=== PATIENT | male | born 1955 | race Caucasian/White ===

== ENCOUNTER 2019-09-16 06:15 | Inpatient (IN) | payer OTHER ==
[2019-09-09 14:28] VITALS: BMI 35.9
[2019-09-16] MEDS ORDERED: BENZOIN/ALOE VERA/STORAX/TOLU 58 ML BOTTLE ONE (07:13)
[2019-09-16] MEDS ORDERED: HEPARIN NA (PORCINE) 5,000 UNITS/ML 1ML VIAL ONE (07:13)
[2019-09-16] MEDS ORDERED: THROMBIN (BOVINE) 5,000 UNIT VIAL TP ONE ×2 (07:14→09:45)
[2019-09-16] MEDS ORDERED: fentaNYL CITRATE 250 MCG/5 ML VIAL ONE (07:34)
[2019-09-16] MEDS ORDERED: ROCURONIUM BROMIDE 50 MG/5 ML SYRINGE ONE (07:35)
[2019-09-16] MEDS ORDERED: MIDAZOLAM HCL 2 MG/2 ML SINGLE DOSE VIAL ONE ×4 (07:35→08:08)
[2019-09-16] MEDS ORDERED: PROPOFOL 20 ML ONE ×19 (07:35→12:16)
[2019-09-16] MEDS ORDERED: SUCCINYLCHOLINE CHLORIDE 200 MG/10 ML SYRINGE ONE (07:35)
--- NOTE | 2019-09-16 07:46 | PN ---
Progress Note (short form) - Note Progress Note: 64M s/p C5 corpectomies with C4-C5, C5-C6 discectomies and C4-C6 anterior cervical decompression with anterior column reconstruction and instrumented fusion POD #0. -12cc decadron x 1 administered. -Airway observation: In case of emergency, remove anterior cervical spine dressing and pull out running suture; ok to cut suture if needed to decompress hematoma. -Maintain head of bed 30-45 degrees. -Pain medication: oral meds (tramadol preferred; no oxycodone/percocet/vicodin) , no CONTRACTS [place]; NO NSAID's. -Hard c-collar. -DVT PPx: -Mechanical only: JOVANY's, SCD's. -Post-op Ancef x 3 doses. -f/u AM labs. -Incentive spirometry. -PT/OT/Rehab, OOB. -PWB B/L UE: 5lbs. -WBAT B/L LE. -d/c Gutierrez catheter at midnight tonight; TOV (8 hours max). -Keep dressing clean & dry. -No heavy lifting (>5 lbs), bending or twisting x 6 months post op. -Start with soft diet; advance diet as tolerated. -B/L UE & LE NV checks. -Care per ICU & medical hospitalist teams. -Discharge planning: f/u [facility] office 09/26/2019; call for appointment; . Abilio Briscoe MD (Orthopaedic Surgery).
[2019-09-16] MEDS ORDERED: BUPIVACAINE HCL/PF 0.5% (5 MG/ML) 30 ML VIAL IJ ONE (08:05)
[2019-09-16] MEDS ORDERED: DEXAMETHASONE SOD PHOSPHATE 4 MG/1 ML VIAL ONE (08:05)
[2019-09-16] MEDS ORDERED: VANCOMYCIN 1,000 MG VIAL (RESTRICTED TO ID ONLY) IVPB ONE ×2 (08:40→09:10)
[2019-09-16] MEDS ORDERED: ceFAZolin SODIUM 1 GM VIAL IVPB ONE ×2 (09:00→09:10)
--- NOTE | 2019-09-16 09:10 | OP ---
Operative Note - Note: Operative Date: 09/16/19 Pre-Operative Diagnosis: 1. 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 2. C4-C6 spinal stenosis with myelopathy. 3. 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 SEVERITY OF ILLNESS: 4. Operation: 1. C4-C5, C5-C6 discectomies. 2. C5 corpectomy. 3. C4, C6 partial corpectomies. 4. Insertion biomechanical device C4-C6. 5. C4-C6 Anterior instrumentation. 6. C4-C6 Anterior arthrodesis. 7. Bone Autograft. 8. Bone allograft. 9. Microsurgical dissection Findings: Severe spinal stenosis C4-C5, C5-C6 Anterior spondylophytes C4-C5, C5-C6 Spinal cord bulging into field after decompression Distinctive intra-operative neural monitoring improvement Implants: C4-C6 Choice Spine [place] Cage: 30 x [id number]. Precision Spine Slimplicity Plate: 35mm. Screws: 4 x 4x12mm Post-Operative Diagnosis: Same as Pre-op Surgeon: Abilio Briscoe Industrial Relations Representative: Vince Briscoe Anesthesiologist/STEAMING MACHINE OPERATOR: Lisa Ge Anesthesia: General, Local Specimens Removed: C4-C5, C5-C6 discs Estimated Blood Loss (mls): 100 Fluid Volume Replaced (mls): 1,500 (Crystalloid) Operative Report Dictated: Yes
[2019-09-16] MEDS ORDERED: NEOSTIGMINE METHYLSULFATE 0.5 MG/1 ML - 10 ML MDV ONE (09:12)
[2019-09-16] MEDS ORDERED: PHENYLEPHRINE HCL 10 MG/1 ML SINGLE DOSE VIAL ONE (09:26)
[2019-09-16] MEDS ORDERED: ONDANSETRON 4 MG/2 ML VIAL IVPUSH PRN (13:23)
[2019-09-16] MEDS ORDERED: traMADol HCL 50 MG TABLET PO PRN (13:27)
[2019-09-16] MEDS ORDERED: ACETAMINOPHEN 1000 MG/100 ML VIAL (NON FORMULARY) IVPB ONE ×2 (14:45→16:35)
[2019-09-16] MEDS ORDERED: ACETAMINOPHEN INJECTION 100 ML IVPB ONE (14:46)
[2019-09-16] MEDS ORDERED: oxyCODONE HCL 5 MG TABLET PO PRN ×2 (14:56)
[2019-09-16] MEDS ORDERED: DOCUSATE SODIUM 100 MG CAPSULE (FP) PO PRN (14:56)
--- NOTE | 2019-09-16 16:31 | CONSULT ---
Consultation: REQUESTING PROVIDER: Dr Briscoe CONSULT REQUEST: ICU management HISTORY OF PRESENT ILLNESS: 64 yo male with PMH of borderline HTN and HLD presented to the ED with complaints of left sided numbness and pain - this is patients first neck surgery - he states that he has been suffering for years with this pain and has avoided surgery; he had received 1 steroid injection in the past the pain in addition to the numbness got so severe which is why he came in for surgery - patient is now s/p C5 corpectomies with C4-C5, C5-C6 discectomies and C4-C6 anterior cervical decompression with anterior column reconstruction and instrumented fusion. EBL was 100ml with 1500 cystalloid replaced ; received decadron x1 . REVIEW OF SYSTEMS: CONSTITUTIONAL: Absent: fever, chills, diaphoresis, generalized weakness, malaise, loss of appetite, weight change HEENT: Absent: rhinorrhea, nasal congestion, throat pain, throat swelling, difficulty swallowing, mouth swelling, ear pain, eye pain, visual changes CARDIOVASCULAR: Absent: chest pain, syncope, palpitations, irregular heart rate, lightheadedness , peripheral edema RESPIRATORY: Absent: cough, shortness of breath, dyspnea with exertion, orthopnea, wheezing, stridor, hemoptysis GASTROINTESTINAL: Absent: abdominal pain, abdominal distension, nausea, vomiting, diarrhea, constipation, melena, hematochezia GENITOURINARY: Absent: dysuria, frequency, urgency, hesitancy, hematuria, flank pain, genital pain MUSCULOSKELETAL: Present: neck/back pain Absent: myalgia, arthralgia, joint swelling, SKIN: Absent: rash, itching, pallor HEMATOLOGIC/IMMUNOLOGIC: Absent: easy bleeding, easy bruising, lymphadenopathy, frequent infections ENDOCRINE: Absent: unexplained weight gain, unexplained weight loss, heat intolerance, cold intolerance NEUROLOGIC: Present paresthesias, Absent: headache, focal weakness or, dizziness, unsteady gait, seizure, mental status changes, bladder or bowel incontinence PSYCHIATRIC: Absent: anxiety, depression, suicidal or homicidal ideation, hallucinations. PHYSICAL EXAMINATION Vital Signs - 24 hr 09/16/19 09/16/19 09/16/19 07:14 13:40 13:45 Temperature 98.0 F 98.8 F Pulse Rate 75 70 98 H Respiratory 20 18 18 Rate Blood Pressure 151/80 139/74 133/79 O2 Sat by Pulse 98 99 99 Oximetry (%) 09/16/19 09/16/19 09/16/19 13:50 14:00 14:15 Temperature Pulse Rate 93 H 93 H 94 H Respiratory 18 20 20 Rate Blood Pressure 134/84 141/86 152/91 O2 Sat by Pulse 99 99 99 Oximetry (%) 09/16/19 09/16/19 09/16/19 14:30 14:45 15:00 Temperature Pulse Rate 90 92 H 93 H Respiratory 20 20 21 H Rate Blood Pressure 150/91 151/92 155/90 O2 Sat by Pulse 99 99 98 Oximetry (%) 09/16/19 09/16/19 09/16/19 15:10 15:15 15:30 Temperature Pulse Rate 90 94 H 93 H Respiratory 16 17 17 Rate Blood Pressure 152/95 150/91 144/92 O2 Sat by Pulse 98 99 99 Oximetry (%) 09/16/19 15:45 Temperature Pulse Rate 90 Respiratory 18 Rate Blood Pressure 139/90 O2 Sat by Pulse 98 Oximetry (%) GENERAL: Awake, alert, and fully oriented, in no acute distress.. EYES: PEERLA; EOMI; no scleral icterus NECK:C collar in place; anterior dressing c/d/i LUNGS: CTA B/L; no rales; rhonchi or wheezing HEART: Regular rate and rhythm, normal S1 and S2 without murmur, rub or gallop. ABDOMEN: Soft, nontender, not distended, normoactive bowel sounds, no guarding, no rebound, no masses. No hepatomegaly or splenomegaly. MUSCULOSKELETAL: Normal range of motion at all joints. No bony deformities or tenderness. No CVA tenderness. EXTREMITIES: SCDS in place- warm; well-perfused no clubbing/cyanosis or edema NEUROLOGICAL: Cranial nerves II-XII intact. Normal speech. Normal gait. RUE and LUE: 5/5 strength B/L sensation intact throughout; RLE and LLE 5/5 strength BL ; sensation intact throughout 2+ pulses; normoreflexive PSYCHIATRIC: Cooperative. Good eye contact. Appropriate mood and affect. SKIN: Warm, dry, normal turgor, no rashes or lesions noted. Laboratory Results - last 24 hr 09/16/19 09/16/19 06:33 08:45 Blood Type O POSITIVE O POSITIVE Antibody Screen Negative Active Medications Generic Name Dose Route Start Last Admin Trade Name Freq PRN Reason Stop Dose Admin Acetaminophen 1,000 mg 09/16/19 18:00 Tylenol - PO Q6HPO [facility] Atorvastatin Calcium 10 mg 09/16/19 22:00 Lipitor - PO HS [facility] Cefazolin Sodium/Dextrose 2 gm 09/16/19 18:30 Ancef 2 Gm Premixed Ivpb - IVPB 09/17/19 06:31 Q6H [facility] Dexamethasone Sodium Phosphate 10 mg 09/17/19 06:30 Decadron Injection - IVPUSH 09/17/19 06:31 ONCE ONE Diazepam 5 mg 09/16/19 22:00 Valium - PO BID [facility] Docusate Sodium 100 mg 09/16/19 14:56 Colace - PO BID PRN CONSTIPATION Fentanyl 50 mcg 09/16/19 14:52 Sublimaze Injection - IVPUSH [id number] PRN PAIN-PACU ORDER X 4 DOSES ONLY Hydromorphone HCl 1 mg 09/16/19 14:58 Dilaudid Vial - IVPB Q4H PRN PAIN LEVEL 7 - 10 Lactated Ringer's 1,000 mls @ 125 mls/hr 09/16/19 13:30 Lactated Ringers Solution IV ASDIR [facility] Lisinopril 10 mg 09/17/19 10:00 Prinivil PO DAILY [facility] Loratadine 10 mg 09/17/19 10:00 Claritin - PO DAILY [facility] Montelukast Sodium 10 mg 09/16/19 22:00 Singulair - PO HS [facility] Ondansetron HCl 4 mg 09/16/19 13:23 Zofran Injection IVPUSH Q6H PRN NAUSEA AND/OR VOMITING Oxycodone HCl 5 mg 09/16/19 14:56 Roxicodone - PO Q3H PRN PAIN LEVEL 1 - 3 Oxycodone HCl 10 mg 09/16/19 14:56 Roxicodone - PO Q3H PRN PAIN LEVEL 4 - 6 Fluticasone/Salmeterol 1 puff 09/16/19 22:00 Advair 100mcg/50mcg - IH BID [facility] Tamsulosin HCl 0.4 mg 09/17/19 08:30 Flomax - PO DAILY@0830 [facility] Tramadol HCl 50 mg 09/16/19 13:27 Ultram - PO Q4H PRN PAIN LEVEL 6-10 ASSESSMENT/PLAN: 64 yo male with PMH of borderline HTN and HLD presented to the ED with complaints of left sided numbness and pain who is now POD #0 s/p C5 corpectomies with C4-C5, C5-C6 discectomies and C4-C6 anterior cervical decompression with anterior column reconstruction and instrumented fusion. #Neuro patient is POD # 0 s/p C5 corpectomies with C4-C5, C5-C6 discectomies and C4- C6 anterior cervical decompression with anterior column reconstruction and instrumented fusion. -bustos has been removed -tramadol PRN for pain -c-collar in place -SCDS for dvt PPX -OOB to chair -patient has not passed flatus yet -f/u neuro surg recs -PT #Cardio history of borderline HTN and HLD -c/w lisinopril and lipitor -monitor hemodynamics #GI stable; no issues -soft diet #Pulm stable;no issues F/E/N will d/c fluids once tolerating diet monitor electrolytes soft diet dvt ppx: scds Dispo: We will continue to follow the patient. Thank you for this consultative opportunity. Problem List - Problems (1) HTN (hypertension) Code(s): I10 - ESSENTIAL (PRIMARY) HYPERTENSION (2) HLD (hyperlipidemia) Code(s): E78.5 - HYPERLIPIDEMIA, UNSPECIFIED (3) Cervical disc disease Code(s): M50.90 - CERVICAL DISC DISORDER, UNSP, UNSPECIFIED CERVICAL REGION Visit type - Emergency Visit Emergency Visit: Yes ED Registration Date: 09/16/19 Care time: The patient presented to the Emergency Department on the above date and was hospitalized for further evaluation of their emergent condition. - New Patient This patient is new to me today: Yes Date on this admission: 09/16/19 - Critical Care Critical Care patient: Yes Total Critical Care Time (in minutes): 35 Critical Care Statement: The care of this patient involved high complexity decision making to prevent further life threatening deterioration of the patient 's condition and/or to evaluate & treat vital organ system(s) failure or risk of failure. ATTENDING PHYSICIAN STATEMENT I saw and evaluated the patient. I reviewed the resident's note and discussed the case with the resident. I agree with the resident's findings and plan as documented. SUBJECTIVE: OBJECTIVE: ASSESSMENT AND PLAN:
[2019-09-16] MEDS: HYDROmorphone HCl 2 MG/ML VIAL IVPB PRN ×2 (17:22→20:54)
[2019-09-16] MEDS ORDERED: ACETAMINOPHEN 500 MG TABLET (FP) PO SCH (18:00)
[2019-09-16] MEDS: ceFAZolin 2 GRAM PREMIX BAG IVPB SCH ×2 (18:16→23:42)
[2019-09-16] MEDS: LACTATED RINGERS SOLUTION 1,000 ML IV SCH (19:00)
[2019-09-16] MEDS: diazePAM 5 MG TABLET PO SCH (21:08)
[2019-09-16] MEDS ORDERED: MONTELUKAST NA 10 MG TABLET PO SCH (22:00)
[2019-09-16] MEDS ORDERED: ATORVASTATIN CA 10 MG TABLET (FP) PO SCH (22:00)
[2019-09-16] MEDS: FLUTICASONE/SALMETEROL 100 MCG/50 MCG DISKUS IH SCH (22:51)
[2019-09-17] MEDS: HYDROmorphone HCl 2 MG/ML VIAL IVPB PRN (02:16)
[2019-09-17] MEDS: LACTATED RINGERS SOLUTION 1,000 ML IV SCH (04:35)
[2019-09-17] MEDS: ceFAZolin 2 GRAM PREMIX BAG IVPB SCH (05:39)
[2019-09-17] MEDS ORDERED: BENZOCAINE/MENTH/CETYLPYRD CL 1 EACH LOZENGE MM PRN ×2 (06:13→20:26)
[2019-09-17] MEDS ORDERED: DEXAMETHASONE SOD PHOSPHATE 10 MG/1 ML VIAL IVPUSH ONE (06:30)
--- NOTE | 2019-09-17 07:42 | HP ---
CHIEF COMPLAINT: Neck, left shoulder pain PCP: HISTORY OF PRESENT ILLNESS: Patient is a 64 year old male with history of hypertension, hyperlipidemia, benign prostatic hyperplasia, asthma, presented with compliant of neck, left shoulder pain with associated paresthesia. Patient states symptoms began several years ago leading to difficulty moving his left arm, and grasping objects. He had attempted steroid injection to the shoulder which were not palliative. Patient recently had MRI of cervical spine which revealed multilevel disc degeneration. Patient is POD #1 s/p C4-C5, C5-C6 discectomies with C5 corpectomy and C4, C6 partial corpectomies. Patient received insertion of biomechanical device C4-C6. C4-C6 Anterior instrumentation. C4-C6 Anterior arthrodesis. Currently endorses improvement of the left upper extremity range of motion. 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 Indepenent in activities of daily living. Smoking: Denies smoking cigarettes Alcohol: Admits 2-3 drinks of whiskey on weekend. Drugs: Denies illicit drug use. Allergies sesame seed Allergy (Severe, Verified 09/09/19 14:29) Swelling,PASSES OUT HOME MEDICATIONS: Home Medications Medication Instructions Recorded Benazepril HCl 10 mg PO DAILY 09/09/19 Levocetirizine Dihydrochloride 5 mg PO PRN 09/09/19 [Allergy Relief] Montelukast Sodium [Singulair] 10 mg PO HS 09/09/19 Salmeterol/Fluticasone [Advair 1 inh PO BID 09/09/19 100Mcg/50Mcg -] Simvastatin 20 mg PO HS 09/09/19 Tamsulosin HCl 0.4 mg PO DAILY 09/09/19 REVIEW OF SYSTEMS CONSTITUTIONAL: Absent: fever, chills, diaphoresis, generalized weakness, malaise, loss of appetite, weight change HEENT: Absent: rhinorrhea, nasal congestion, throat pain, throat swelling, difficulty swallowing, mouth swelling, ear pain, eye pain, visual changes CARDIOVASCULAR: Absent: chest pain, syncope, palpitations, irregular heart rate, lightheadedness , peripheral edema RESPIRATORY: Absent: cough, shortness of breath, dyspnea with exertion, orthopnea, wheezing, stridor, hemoptysis GASTROINTESTINAL: Absent: abdominal pain, abdominal distension, nausea, vomiting, diarrhea, constipation, melena, hematochezia GENITOURINARY: Absent: dysuria, frequency, urgency, hesitancy, hematuria, flank pain, genital pain MUSCULOSKELETAL: Absent: myalgia, arthralgia, joint swelling, back pain, neck pain SKIN: Absent: rash, itching, pallor HEMATOLOGIC/IMMUNOLOGIC: Absent: easy bleeding, easy bruising, lymphadenopathy, frequent infections ENDOCRINE: Absent: unexplained weight gain, unexplained weight loss, heat intolerance, cold intolerance NEUROLOGIC: Absent: headache, focal weakness or paresthesias, dizziness, unsteady gait, seizure, mental status changes, bladder or bowel incontinence PSYCHIATRIC: Absent: anxiety, depression, suicidal or homicidal ideation, hallucinations. PHYSICAL EXAMINATION Vital Signs - 24 hr 09/16/19 09/16/19 09/16/19 13:40 13:45 13:50 Temperature 98.8 F Pulse Rate 70 98 H 93 H Respiratory 18 18 18 Rate Blood Pressure 139/74 133/79 134/84 O2 Sat by Pulse 99 99 99 Oximetry (%) 09/16/19 09/16/19 09/16/19 14:00 14:15 14:30 Temperature Pulse Rate 93 H 94 H 90 Respiratory 20 20 20 Rate Blood Pressure 141/86 152/91 150/91 O2 Sat by Pulse 99 99 99 Oximetry (%) 09/16/19 09/16/19 09/16/19 14:45 15:00 15:10 Temperature Pulse Rate 92 H 93 H 90 Respiratory 20 21 H 16 Rate Blood Pressure 151/92 155/90 152/95 O2 Sat by Pulse 99 98 98 Oximetry (%) 09/16/19 09/16/19 09/16/19 15:15 15:30 15:45 Temperature Pulse Rate 94 H 93 H 90 Respiratory 17 17 18 Rate Blood Pressure 150/91 144/92 139/90 O2 Sat by Pulse 99 99 98 Oximetry (%) 09/16/19 09/16/19 09/16/19 16:00 16:38 16:41 Temperature 98.9 F 97.8 F Pulse Rate 96 H 92 H 88 Respiratory 20 18 18 Rate Blood Pressure 138/85 138/93 145/90 O2 Sat by Pulse 99 Oximetry (%) 09/16/19 09/16/19 09/16/19 17:29 18:00 20:00 Temperature 98.1 F 98.1 F Pulse Rate 64 90 93 H Respiratory 15 16 22 H Rate Blood Pressure 142/87 122/79 142/90 O2 Sat by Pulse Oximetry (%) 09/16/19 09/17/19 09/17/19 22:00 00:00 02:00 Temperature 98.5 F 98.4 F Pulse Rate 67 65 52 L Respiratory 18 11 14 Rate Blood Pressure 132/74 126/77 150/79 O2 Sat by Pulse 99 Oximetry (%) 09/17/19 09/17/19 04:00 06:00 Temperature 98.5 F Pulse Rate 59 L 55 L Respiratory 14 12 Rate Blood Pressure 123/97 145/82 O2 Sat by Pulse Oximetry (%) GENERAL: Awake, alert, and fully oriented, in no acute distress. HEAD: Normal with no signs of trauma. EYES: Pupils equal, round and reactive to light, extraocular movements intact, sclera anicteric, conjunctiva clear. EARS, NOSE, THROAT: Oropharynx clear without exudates. Moist mucous membranes. NECK: Cervical collar in place. Supple without lymphadenopathy. Negative stridor auscultated. LUNGS: Breath sounds equal, clear to auscultation bilaterally. No wheezes, and no crackles. No accessory muscle use. HEART: Regular rate and rhythm, normal S1 and S2 without murmur, rub or gallop. ABDOMEN: Soft, nontender, not distended, normoactive bowel sounds, no guarding, no rebound, no masses. No hepatomegaly or splenomegaly. MUSCULOSKELETAL: Normal range of motion at all joints. No bony deformities or tenderness. No CVA tenderness. UPPER EXTREMITIES: 2+ radial pulses, warm, well-perfused. LOWER EXTREMITIES: 2+ dorsalis pedis pulses, warm, well-perfused. No calf tenderness. No peripheral edema bilaterally. NEUROLOGICAL: Cranial nerves II-XII intact. Normal speech. Strength 5/5 bilateral upper and lower extremities. PSYCHIATRIC: Cooperative. Appropriate mood and affect upon my encounter. SKIN: Warm, dry. Anterior cervical surgical bandaged site clean, dry, nondraining. Laboratory Results - last 24 hr 09/16/19 09/16/19 06:33 08:45 Blood Type O POSITIVE O POSITIVE Antibody Screen Negative ASSESSMENT/PLAN: Patient is a 64 year old male with history of hypertension, hyperlipidemia, benign prostatic hyperplasia, asthma, admitted POD #1 s/p C4-C5, C5-C6 discectomies with C5 corpectomy, C4, C6 partial corpectomies, and C4-C6 Anterior instrumentation with anterior arthrodesis. Cervical intervertebral disc disorder -Patient is POD #1 s/p C4-C5, C5-C6 discectomies with C5 corpectomy, C4, C6 partial corpectomies, and C4-C6 Anterior instrumentation with anterior arthrodesis. -Pain control with Ofirmev. Avoid NSAIDs per Dr. Briscoe -Physical therapy evaluation -Incentive spirometer Hypertension -Continue home Lisinopril Hyperlipidemia -Continue home Lipitor Asthma -Currently not in exacerbation. -DuoNebs Q6 hours PRN -Continue home Advair, Singulair Benign prostatic hyperplasia -Continue home Tamsulosin FEN -No IV fluids indicated -Follow BMP, replete as necessary -Soft diet, advance as tolerated Prophylaxis -SCDs bilateral lower extremities. No chemical anticoagulation per Dr. Briscoe Disposition -Continue care in ICU Visit type - Emergency Visit Emergency Visit: Yes ED Registration Date: 09/16/19 Care time: The patient presented to the Emergency Department on the above date and was hospitalized for further evaluation of their emergent condition. - New Patient This patient is new to me today: Yes Date on this admission: 09/16/19 - Critical Care Critical Care patient: Yes Total Critical Care Time (in minutes): 35 Critical Care Statement: The care of this patient involved high complexity decision making to prevent further life threatening deterioration of the patient 's condition and/or to evaluate & treat vital organ system(s) failure or risk of failure. ATTENDING PHYSICIAN STATEMENT I saw and evaluated the patient. I reviewed the resident's note and discussed the case with the resident. I agree with the resident's findings and plan as documented. SUBJECTIVE: OBJECTIVE: ASSESSMENT AND PLAN:
[2019-09-17] MEDS ORDERED: TAMSULOSIN HCL 0.4 MG CAP PO SCH (08:30)
--- NOTE | 2019-09-17 08:51 | OP ---
DATE OF OPERATION: 09/16/2019 PRE-OPERATIVE DIAGNOSIS: 1. 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 Myelopathy. B. Radiculopathy. 2. Severe C4-C6 spinal stenosis with neurogenic claudication. 3. Cervical kyphosis/deformity. 4. Axial segmental instability cervical spine. 5. Progressive neurological decline. POST-OPERATIVE DIAGNOSIS: 1. 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 Myelopathy. B. Radiculopathy. 2. Severe C4-C6 spinal stenosis with neurogenic claudication. 3. Cervical kyphosis/deformity. 4. Axial segmental instability cervical spine. 5. Progressive neurological decline. SURGICAL PROCEDURE: 1. C4-C5, C5-C6 discectomies and arthrodesis (31799, 72281). 2. C5 corpectomy (08555). 3. C4, C6 partial corpectomies (30211 x 2). 4. Insertion of biomechanical device C4-C6 (55356). 5. C4-C6 anterior instrumentation (16445). 6. Bone autograft (54016). 7. Bone allograft (24262). 8. Microsurgical dissection (94371). FINDINGS: Thickened, fibrotic posterior longitudinal ligament (PLL). IMPLANTS: 1. Cage: Choice Spine Frankfort [id number]. 2. Plate: Precision Spine Simplicity 35mm. 3. Screws: 4 x 12x4mm. SURGEON: Abilio Briscoe MD JAVA SUPPORT ENGINEER: Vince Briscoe MD ANESTHESIOLOGIST: Lisa Ge MD ANESTHESIA: General endotracheal tube anesthesia. POSITION: Supine. INCISION: Right oblique anterior. ESTIMATED BLOOD LOSS: 100cc. TRANSFUSIONS: None. INTRAVENOUS FLUID: 1.5L crystalloid. SPECIMENS: C4-C5, C5-C6 discs. DRAINS: None. COMPLICATIONS: None. URINE OUTPUT: See anesthesia record. BACTERIOLOGY: None. CLOSURE: 2-0 Vicryl and 3-0 Biosyn absorbable suture. INDICATIONS: The patient was indicated for an anterior cervical decompression and instrumented fusion to prevent the progression of already worsening neurological decline. In addition to decompressing Mr. Arroyo's C4-C5 and C5-C6 intervertebral disc spaces, we indicated him for a C5 corpectomy to decompress the stenosing soft tissue immediately posterior to the C5 vertebral body. This tissue behind the C5 vertebra was impinging on his spinal cord, and would not have been decompressed by only decompressing the C4-C5 and C5-C6 intervertebral disc spaces. Our decision was almost immediately validated by significant improvement in intra-operative neural monitoring readings in his extremities following our decompression. The patient was identified in the holding area by his armband. A long discussion was held with the patient regarding the risks, benefits and alternatives of the above-named procedure. The risks include, but are not limited to: pain, bleeding, infection, damage to surrounding structures (including nerves, blood vessels, skin, ligaments, tendons, and bone), dysphagia, dysphonia, nerve palsy, weakness, limp, wound complications, pseudarthrosis, failure of fusion, failure of hardware/implants/ reduction, need for further surgery, blood clots, myocardial infarction, pulmonary embolism, cerebrovascular event, anesthesia complications, neurological injury, loss of function, and . Benefits as mentioned above. Alternatives include no surgery. All questions were answered. The patient understood and agreed to the procedure. Informed consent was obtained, witnessed and verified by hospital nursing staff. The patients anterior neck was marked. The patient was then seen by the anesthesia and nursing staff and then taken to the operating room. PROCEDURE: The patient was brought into the operating room and transferred to the OR table , and secured with a safety strap. Consent and the operative site were again verified with the patient, the nursing team, the surgical team, and the anesthesiology team. Anesthesia, IV antibiotics, and TXA were then administered without complication. A time out was done, led by me the attending surgeon. An indwelling Gutierrez catheter was successfully inserted by the nursing team. The intra-operative neural monitoring team then set up for the case. Pre-positional baseline SSEP, MEP, & EEG readings were recorded. The patient was positioned in the supine position with arms tucked and placed under gentle traction using tape over her shoulders. All bony prominences were very well padded. A bump was placed beneath the scapulae to facilitate extension of the patients neck. A C-arm fluoroscopy unit was positioned perpendicularly to the table and maintained at the level of the head, except when needed. The intended surgical level was confirmed using fluoroscopy, and a deep neck crease in the lines of Amy at this level was targeted for incision. Intra-operative neural monitoring revealed no change between pre-positional and post-positional readings. The operative site was then prepped and in the standard sterile fashion using betadine prep and scrub, wiped off with alcohol, Duraprep applied, and then free draped. Pre-operative imaging was available for intra-operative evaluation. Time-out was again done, and the case began. A standard, Eden-Brown approach to the cervical spine was utilized. An oblique anterior incision was made on the right side of the patients neck in the lines of Amy in standard fashion. Dissection was carried through the investing layer of fascia and finger palpation was used to create a plane lateral to the strap muscles between the carotid sheath and the viscera. Next, the esophagus and trachea were visualized as was the carotid sheath. Hand-held retractors were used to retract these structures safely out of the way , allowing direct access to the anterior cervical spine. The prevertebral fascia overlying the anterior cervical spine was then split using peanut swabs. An 18-gauge spinal needle was bent and used to localize the indicated surgical level under fluoroscopy. Next, the medial borders of the Longus Coli musculature were gently released over the anterolateral borders of the vertebral bodies and disc spaces using monopolar electrocautery. A self-retaining retractor system was used with the teeth of the blades retracting the belly of the longus coli muscles, and with the retractors themselves safely retracting the carotid sheath laterally and viscera medially. One 12mm [place] pin was then placed into the center of the vertebral bodies of C4 and C6. The [place] pin placement was confirmed via fluorscopy. A [place] pin distractor system was applied with no distraction at this stage. Additionally, the distractor barrels served as superior and inferior soft tissue retractors. The microscope was then introduced. Using monopolar electrocautery, the annulus of the C4-C5 and C5-C6 discs was incised. Each disc was morselized using a curette and excised using a pituitary rongeur. A Matchstick rosi-tipped jimmie was then used to cut a trough onto the left- and right-hand side of the C5 vertebral body just medial to the waist of the vertebral body, and thus medial to the plane of the vertebral arteries. The C4-C5 and C5-C6 disc spaces were then also burred out. The remaining bone was delivered with a Leksell rongeur. All of this bone was saved for grafting purposes as an autologous graft. A 4mm ball-shaped, rosi-tipped jimmie was utilized to complete the debulking of the residual bone. Gentle distraction was applied to the [place] pins. An undercutting partial corpectomies were performed at C4 and C6 using a jimmie and Kerrison rongeurs. This was to ensure complete decompression proximally and distally. A small Terry type elevator was utilized to ensure that all PLL complex was free from adhesion to the theca from C4-C6. There was significant adhesion of the PLL to the ventral dura. There was no evidence of OPLL. The visible posterior longitudinal ligament was released and excised utilizing Kerrison rongeur upcuts. This ensured complete decompression proximally and distally from C4-C6. Our decompression of the cervical spine was successfully achieved. The spinal cord almost appeared to be bulging into our microscopic field of view now that the stenosis had been decompressed. The anesthesiologist then performed a Valsalva maneuver up to 40mmHg. There was no evidence of dural defect, cerebrospinal fluid leak, or uncontrollable bleeding. Next, a Choice Spine Frankfort cage measure to fit the space created. The cage was filled with morselized autologous bone derived from the corpectomies, along with demineralized bone matrix putty allograft. The cage was then gently tapped into position, achieving excellent press-fit. [place] pin distraction was released and the endplates of the C4 and C6 vertebrae collapse onto the teeth of the strut cage. This completing the anterior arthrodesis. The C4 and C6 L[place] pins were removed. The holes from the [place] pins at C4 and C6 were plugged with demineralized bone matrix putty combined with morselized autograft bone. A Precision Spine Slimplicity plate was sized and 4 4x12mm screws were used to provide solid fixation of the plate to the anterior C4 and C6 vertebral bodies. The screws were then locked using the plate-screw locking mechanism. Fluoroscopic images in the AP and lateral plane showed implants to be in good position and with good overall alignment of the cervical spine. Throughout the case, copious irrigation was performed, and hemostasis was assured. No drain was utilized. The wound was closed primarily using 2-0 Vicryl and 3-0 Biosyn sutures. A sterile compressive dressing was applied. Sponge and needle counts were correct at the end of the case, and I, the attending surgeon, was present and scrubbed throughout the case. A hard Jeddo-J cervical collar was secured to protect the patient's neck. The patient was then extubated by the anesthesia staff without incident or complications and was then transferred to the recovery room in stable condition having tolerated the procedure well. OVERALL COMMENTS: Overall the case went very well. Intra-operative neural monitoring readings improved from baseline very shortly after the C4-C6 anterior decompression. MD [place] Molina/[id number] MTDD
--- NOTE | 2019-09-17 09:08 | PN ---
Progress Note (short form) - Note Progress Note: Patient seen. Doing well. POD#1, s/p C4-6ACDF and C5 corpectomy. Taking POs, minnimal discomfort. No recall. No complaints
[2019-09-17] MEDS: ACETAMINOPHEN 1000 MG/100 ML VIAL (NON FORMULARY) IVPB PRN ×2 (09:12→15:13)
[2019-09-17 09:39] LABS: ALBUMIN 3.9 g/dl (3.4-5.0); BILIRUBIN,TOTAL 0.3 mg/dL (0.2-1); BLOOD UREA NITROGEN 17.6 mg/dL (7-18); CALCIUM 9.1 mg/dL (8.5-10.1); CREATININE 0.9 mg/dL (0.55-1.3); MAGNESIUM 2.4 mg/dL (1.8-2.4); PHOSPHOROUS 2.3 mg/dL (2.5-4.9); POTASSIUM 4.3 mmol/L (3.5-5.1); TOT PROT 7.4 g/dl (6.4-8.2)
[2019-09-17] MEDS ORDERED: LORATADINE 10 MG TABLET PO SCH (10:00)
[2019-09-17] MEDS ORDERED: LISINOPRIL 10 MG TABLET (FP) PO SCH (10:00)
[2019-09-17] MEDS ORDERED: NAPH,MB-DB/K PH,MBDB POWDER PACKET PO ONE (10:03)
[2019-09-17] MEDS ORDERED: ALBUTEROL SO4 8 GM HFA INHALER IH PRN (10:21)
--- NOTE | 2019-09-17 10:32 | PN ---
Teaching Attending Note Name of Resident: Erin Mann ATTENDING PHYSICIAN STATEMENT I saw and evaluated the patient. I reviewed the resident's note and discussed the case with the resident. I agree with the resident's findings and plan as documented. SUBJECTIVE: Patient seen and examined in the ICU. Awake and alert. Breathing feels stable. No CP or SOB. Pain 4/10. Intake & Output 09/14/19 09/15/19 09/16/19 09/17/19 23:59 23:59 23:59 23:59 Intake Total 1999 1750 Output Total 2860 450 Balance -860 1300 Last Vital Signs Temp Pulse Resp BP Pulse Ox 98.5 F 55 L 12 145/82 95 09/17/19 06:00 09/17/19 06:00 09/17/19 06:00 09/17/19 06:00 09/17/19 08:00 Active Medications Acetaminophen (Ofirmev Injection -) 1,000 mg IVPB Q6H PRN PRN Reason: PAIN LEVEL 4 - 6 Last Admin: 09/17/19 09:12 Dose: 1,000 mg Albuterol Sulfate (Ventolin Hfa Inhaler -) 2 puff IH Q4H PRN PRN Reason: SHORT OF BREATH/WHEEZING Atorvastatin Calcium (Lipitor -) 10 mg PO HS [facility] Last Admin: 09/16/19 21:08 Dose: 10 mg Benzocaine/Menthol (Cepacol Lozenge -) 1 each MM PRN PRN PRN Reason: SORE THROAT Diazepam (Valium -) 5 mg PO BID [facility] Last Admin: 09/16/19 21:08 Dose: 5 mg Docusate Sodium (Colace -) 100 mg PO BID PRN PRN Reason: CONSTIPATION Lisinopril (Prinivil) 10 mg PO DAILY [facility] Loratadine (Claritin -) 10 mg PO DAILY [facility] Montelukast Sodium (Singulair -) 10 mg PO HS [facility] Last Admin: 09/16/19 21:08 Dose: 10 mg Ondansetron HCl (Zofran Injection) 4 mg IVPUSH Q6H PRN PRN Reason: NAUSEA AND/OR VOMITING Fluticasone/Salmeterol (Advair 100mcg/50mcg -) 1 puff IH BID [facility] Last Admin: 09/16/19 22:51 Dose: 1 puff Tamsulosin HCl (Flomax -) 0.4 mg PO DAILY@0830 [facility] Last Admin: 09/17/19 09:06 Dose: 0.4 mg Tramadol HCl (Ultram -) 50 mg PO Q4H PRN PRN Reason: PAIN LEVEL 6-10 GENERAL: Awake, alert, and fully oriented, in no acute distress.. EYES: PEERLA; EOMI; no scleral icterus NECK: Hard C collar in place; anterior dressing c/d/i LUNGS: CTA B/L; no rales; rhonchi or wheezing HEART: Regular rate and rhythm, normal S1 and S2 without murmur, rub or gallop. ABDOMEN: Soft, nontender, not distended, normoactive bowel sounds, no guarding, no rebound, no masses. No hepatomegaly or splenomegaly. MUSCULOSKELETAL: Normal range of motion at all joints. No bony deformities or tenderness. No CVA tenderness. EXTREMITIES: SCDS in place- warm; well-perfused no clubbing/cyanosis or edema NEUROLOGICAL: Non-focal PSYCHIATRIC: Cooperative. Good eye contact. Appropriate mood and affect. SKIN: Warm, dry, normal turgor, no rashes or lesions noted. Laboratory Results - last 24 hr 09/16/19 09/17/19 08:45 08:58 Sodium 141 Potassium 4.3 Chloride 104 Carbon Dioxide 32 Anion Gap 5 L BUN 17.6 Creatinine 0.9 Est GFR (CKD-EPI)AfAm 105.72 Est GFR (CKD-EPI)NonAf 91.22 Random Glucose 145 H Calcium 9.1 Phosphorus 2.3 L Magnesium 2.4 Total Bilirubin 0.3 AST 16 ALT 30 Alkaline Phosphatase 76 Total Protein 7.4 Albumin 3.9 Blood Type O POSITIVE Problem List - Problems (1) HTN (hypertension) Code(s): I10 - ESSENTIAL (PRIMARY) HYPERTENSION (2) HLD (hyperlipidemia) Code(s): E78.5 - HYPERLIPIDEMIA, UNSPECIFIED (3) Cervical disc disease Code(s): M50.90 - CERVICAL DISC DISORDER, UNSP, UNSPECIFIED CERVICAL REGION ASSESSMENT/PLAN: POD #1: 1. C4-C5, C5-C6 discectomies. 2. C5 corpectomy. 3. C4, C6 partial corpectomies. 4. Insertion biomechanical device C4-C6. 5. C4-C6 Anterior instrumentation. 6. C4-C6 Anterior arthrodesis. 7. Bone Autograft. 8. Bone allograft. 9. Microsurgical dissection HTN HLD PT OOB to chair O2 as needed Incentive Spirometry Hard Collar VTE prophylaxis PO as tolerated Neuro checks Dr Thacker
[2019-09-17] MEDS ORDERED: PT OWN MED DRAWER 7, Y5N ONE (10:36)
--- NOTE | 2019-09-17 11:00 | PN ---
Physical Exam: SUBJECTIVE: Patient seen and examined OBJECTIVE: Vital Signs Period Temp Pulse Resp BP Sys/Pickett Pulse Ox Last 24 Hr 97.8 F-98.9 F 52-98 11-22 122-155/74-97 95-99 GENERAL: The patient is awake, alert, and fully oriented, in no acute distress. HEAD: Normal with no signs of trauma. EYES: PERRL, extraocular movements intact, sclera anicteric, conjunctiva clear. No ptosis. ENT: Ears normal, nares patent, oropharynx clear without exudates, moist mucous membranes. NECK: hard c-collar in place. dressing anterior neck LUNGS: Breath sounds equal, clear to auscultation bilaterally, no wheezes, no crackles, no accessory muscle use. HEART: Regular rate and rhythm, S1, S2 without murmur, rub or gallop. ABDOMEN: Soft, nontender, nondistended, normoactive bowel sounds, no guarding EXTREMITIES: 2+ pulses, warm, well-perfused, no edema. NEUROLOGICAL: Cranial nerves II through XII grossly intact. Normal speech, able to ambulate w/out assistance PSYCH: Normal mood, normal affect. SKIN: Warm, dry, normal turgor, no rashes or lesions noted Laboratory Results - last 24 hr 09/17/19 08:58 Sodium 141 Potassium 4.3 Chloride 104 Carbon Dioxide 32 Anion Gap 5 L BUN 17.6 Creatinine 0.9 Est GFR (CKD-EPI)AfAm 105.72 Est GFR (CKD-EPI)NonAf 91.22 Random Glucose 145 H Calcium 9.1 Phosphorus 2.3 L Magnesium 2.4 Total Bilirubin 0.3 AST 16 ALT 30 Alkaline Phosphatase 76 Total Protein 7.4 Albumin 3.9 Active Medications Generic Name Dose Route Start Last Admin Trade Name Freq PRN Reason Stop Dose Admin Acetaminophen 1,000 mg 09/16/19 21:00 09/17/19 09:12 Ofirmev Injection - IVPB 1,000 mg Q6H PRN Administration PAIN LEVEL 4 - 6 Albuterol Sulfate 2 puff 09/17/19 10:21 Ventolin Hfa Inhaler - IH Q4H PRN SHORT OF BREATH/WHEEZING Atorvastatin Calcium 10 mg 09/16/19 22:00 09/16/19 21:08 Lipitor - PO 10 mg HS [facility] Administration Benzocaine/Menthol 1 each 09/17/19 06:13 Cepacol Lozenge - MM PRN PRN SORE THROAT Diazepam 5 mg 09/16/19 22:00 09/16/19 21:08 Valium - PO 5 mg BID [facility] Administration Docusate Sodium 100 mg 09/16/19 14:56 Colace - PO BID PRN CONSTIPATION Lisinopril 10 mg 09/17/19 10:00 Prinivil PO DAILY [facility] Loratadine 10 mg 09/17/19 10:00 Claritin - PO DAILY [facility] Montelukast Sodium 10 mg 09/16/19 22:00 09/16/19 21:08 Singulair - PO 10 mg HS [facility] Administration Ondansetron HCl 4 mg 09/16/19 13:23 Zofran Injection IVPUSH Q6H PRN NAUSEA AND/OR VOMITING Fluticasone/Salmeterol 1 puff 09/16/19 22:00 09/16/19 22:51 Advair 100mcg/50mcg - IH 1 puff BID [facility] Administration Tamsulosin HCl 0.4 mg 09/17/19 08:30 09/17/19 09:06 Flomax - PO 0.4 mg DAILY@0830 [facility] Administration Tramadol HCl 50 mg 09/16/19 13:27 Ultram - PO Q4H PRN PAIN LEVEL 6-10 Assesment and PLan 64 yo male with PMH of borderline HTN and HLD presented to the ED with complaints of left sided numbness and pain who is now POD #0 s/p C5 corpectomies with C4-C5, C5-C6 discectomies and C4-C6 anterior cervical decompression with anterior column reconstruction and instrumented fusion. #Neuro patient is POD # 0 s/p C5 corpectomies with C4-C5, C5-C6 discectomies and C4- C6 anterior cervical decompression with anterior column reconstruction and instrumented fusion. -tylenol for pain. Pt does not wish to take any opioids -c-collar in place -SCDS for dvt PPX -OOB to chair -f/u neuro surg recs -PT #Cardio history of borderline HTN and HLD -c/w lisinopril and lipitor -monitor hemodynamics #GI stable; no issues -advanced from soft diet to regular #Pulm stable;no issues F/E/N fluids d/c since tolerating regular diet monitor electrolytes regular diet dvt ppx: scds Dispo: Pt can be transferred to floor.. ATTENDING PHYSICIAN STATEMENT I saw and evaluated the patient. I reviewed the resident's note and discussed the case with the resident. I agree with the resident's findings and plan as documented. SUBJECTIVE: OBJECTIVE: ASSESSMENT AND PLAN:
[2019-09-17] MEDS: FLUTICASONE/SALMETEROL 100 MCG/50 MCG DISKUS IH SCH ×2 (11:20→22:18)
[2019-09-17 11:43] LABS: BASO % 0.1 % (0-2.0); HEMOGLOBIN 12.8 GM/dL (11.7-16.9); LYMPH % 5.9 % (8-40); MCH 28.6 pg (25.7-33.7); MCHC 32.9 g/dl (32.0-35.9); MEAN CELL VOLUME 86.8 fl (80-96); MEAN PLT VOLUME 7.5 fl (7.5-11.1); MONO % 2.4 % (3.8-10.2); NEUT % 91.6 % (42.8-82.8); PLATELET COUNT 264 K/MM3 (134-434); RBC 4.49 M/mm3 (4.00-5.60); RDW 14.1 % (11.9-15.9); WHITE BLOOD COUNT 14.6 K/mm3 (4.0-10.0)
[2019-09-17] MEDS: diazePAM 5 MG TABLET PO SCH ×2 (11:50→22:18)
[2019-09-17] MEDS ORDERED: HYDROmorphone HCl 2 MG/ML VIAL IVPUSH ONE (14:43)
--- NOTE | 2019-09-17 16:48 | PN ---
Progress Note (short form) - Note Progress Note: POD#1 In ICU Doing well All original pain in arms and back gone Walked in the hallway Eating soft diet no abnormality in swallowing Wound dry no swelling Neuro GLAZIER [employer] FURNITURE Fully intact Peripheral Motor and sensory fully intact General parameters as per chart PLAN D/C home tomorrow See in the office in 1 week Keep wound dry Use collar PT FWBAT
--- NOTE | 2019-09-17 17:57 | PN ---
Teaching Attending Note Name of Resident: Alexander Dutta ATTENDING PHYSICIAN STATEMENT I saw and evaluated the patient. I reviewed the resident's note and discussed the case with the resident. I agree with the resident's findings and plan as documented. SUBJECTIVE: This is a 64 year old man with history of HTN, hyperlipidemia, asthma, BPH who was admitted for C-spine surgery. He initially presented with neck and left shoulder pain with paresthesias of his left arm. He has had symptoms for several years. Left shoulder steroid injection did not help. MRI showed multilevel cervical degenerative disc disease. OBJECTIVE: Vital Signs Period Temp Pulse Resp BP Sys/Pickett Pulse Ox Last 24 Hr 98.1 F-100.9 F 52-104 11-22 119-154/63-97 95-99 GENERAL: Awake, alert, in no distress, wearing cervical collar HEART: S1S2, RRR LUNGS: Clear ABDOMEN: Obese, soft, non-tender, non-distended, normal BS EXTREMITIES: No edema Laboratory Results - last 24 hr 09/17/19 09/17/19 08:58 08:58 WBC 14.6 H RBC 4.49 Hgb 12.8 Hct 39.0 MCV 86.8 MCH 28.6 MCHC 32.9 RDW 14.1 Plt Count 264 MPV 7.5 Absolute Neuts (auto) 13.4 H Neutrophils % 91.6 H Lymphocytes % 5.9 L Monocytes % 2.4 L Eosinophils % 0.0 Basophils % 0.1 Nucleated RBC % 0 Sodium 141 Potassium 4.3 Chloride 104 Carbon Dioxide 32 Anion Gap 5 L BUN 17.6 Creatinine 0.9 Est GFR (CKD-EPI)AfAm 105.72 Est GFR (CKD-EPI)NonAf 91.22 Random Glucose 145 H Calcium 9.1 Phosphorus 2.3 L Magnesium 2.4 Total Bilirubin 0.3 AST 16 ALT 30 Alkaline Phosphatase 76 Total Protein 7.4 Albumin 3.9 Current Medications Generic Name Dose Route Start Last Admin Trade Name Freq PRN Reason Stop Dose Admin Acetaminophen 1,000 mg 09/16/19 21:00 09/17/19 15:13 Ofirmev Injection - IVPB 1,000 mg Q6H PRN Administration PAIN LEVEL 4 - 6 Albuterol Sulfate 2 puff 09/17/19 10:21 Ventolin Hfa Inhaler - IH Q4H PRN SHORT OF BREATH/WHEEZING Atorvastatin Calcium 10 mg 09/16/19 22:00 09/16/19 21:08 Lipitor - PO 10 mg HS [facility] Administration Benzocaine/Menthol 1 each 09/17/19 06:13 09/17/19 11:16 Cepacol Lozenge - MM 1 each PRN PRN Administration SORE THROAT Diazepam 5 mg 09/16/19 22:00 09/17/19 11:50 Valium - PO 5 mg BID [facility] Administration Docusate Sodium 100 mg 09/16/19 14:56 09/17/19 13:49 Colace - PO 100 mg BID PRN Administration CONSTIPATION Lisinopril 10 mg 09/17/19 10:00 09/17/19 11:14 Prinivil PO 10 mg DAILY [facility] Administration Loratadine 10 mg 09/17/19 10:00 09/17/19 11:13 Claritin - PO 10 mg DAILY [facility] Administration Montelukast Sodium 10 mg 09/16/19 22:00 09/16/19 21:08 Singulair - PO 10 mg HS [facility] Administration Ondansetron HCl 4 mg 09/16/19 13:23 09/17/19 15:03 Zofran Injection IVPUSH 4 mg Q6H PRN Administration NAUSEA AND/OR VOMITING Polyethylene Glycol 17 gm 09/17/19 22:00 Miralax (For Daily Use) - PO BID [facility] Fluticasone/Salmeterol 1 puff 09/16/19 22:00 09/17/19 11:20 Advair 100mcg/50mcg - IH 1 puff BID [facility] Administration Tamsulosin HCl 0.4 mg 09/17/19 08:30 09/17/19 09:06 Flomax - PO 0.4 mg DAILY@0830 [facility] Administration Tramadol HCl 50 mg 09/16/19 13:27 09/17/19 13:43 Ultram - PO 50 mg Q4H PRN Administration PAIN LEVEL 6-10 ASSESSMENT AND PLAN: This is a 64 year old man with history of HTN, hyperlipidemia, asthma, BPH who was admitted for C-spine surgery for cervical disc disease with radiculopathy and myelopathy. 1. Cervical spondylotic radiculopathy, cervical stenosis with myelopathy - s/p C4-C5, C5-C6 discectomies; C5 corpectomy; C4, C6 partial corpectomies; insertion biomechanical device C4-C6; C4-C6 anterior instrumentation; C4-C6 anterior arthrodesis; bone autograft; bone allograft; microsurgical dissection on 09/16 - Doing well - Has had improvement of symptoms - Tolerating diet - Ambulated 400 feet with PT - Febrile today likely secondary to atelectasis seen on CXR - continue incentive spirometer 2. HTN - Continue lisinopril 3. Hyperlipidemia - Continue Lipitor 4. Asthma - Stable - Continue Singulair, Advair 5. BPH - Continue Flomax 6. Disposition - If afebrile, expect discharge in am
[2019-09-17] MEDS ORDERED: HYDROmorphone HCl 2 MG/ML VIAL IVPUSH PRN (19:00)
[2019-09-17] MEDS ORDERED: ACETAMINOPHEN 1000 MG/100 ML VIAL (NON FORMULARY) IVPB PRN (20:26)
[2019-09-17] MEDS ORDERED: ONDANSETRON 4 MG/2 ML VIAL IVPUSH PRN (20:26)
[2019-09-17] MEDS ORDERED: DOCUSATE SODIUM 100 MG CAPSULE (FP) PO PRN (20:26)
[2019-09-17] MEDS ORDERED: ATORVASTATIN CA 10 MG TABLET (FP) PO SCH (22:00)
[2019-09-17] MEDS ORDERED: MONTELUKAST NA 10 MG TABLET PO SCH (22:00)
[2019-09-17] MEDS: POLYETHYLENE GLYCOL 3350 119 GM BTL PO SCH (22:18)
[2019-09-18 08:01] LABS: HEMATOCRIT 34.6 % (35.4-49); HEMOGLOBIN 11.8 GM/dL (11.7-16.9); MCHC 33.9 g/dl (32.0-35.9); MEAN CELL VOLUME 85.4 fl (80-96); PLATELET COUNT 238 K/MM3 (134-434); RBC 4.06 M/mm3 (4.00-5.60); RDW 14.1 % (11.9-15.9)
[2019-09-18] MEDS ORDERED: PT OWN MED DRAWER 7, Y5N ONE ×2 (08:02→09:25)
[2019-09-18] MEDS ORDERED: TAMSULOSIN HCL 0.4 MG CAP PO SCH (08:30)
[2019-09-18 08:36] LABS: ALBUMIN 3.7 g/dl (3.4-5.0); BILIRUBIN,TOTAL 0.3 mg/dL (0.2-1); BLOOD UREA NITROGEN 20.2 mg/dL (7-18); CALCIUM 8.6 mg/dL (8.5-10.1); CREATININE 0.7 mg/dL (0.55-1.3); POTASSIUM 3.5 mmol/L (3.5-5.1); TOT PROT 6.8 g/dl (6.4-8.2)
[2019-09-18] MEDS: POLYETHYLENE GLYCOL 3350 119 GM BTL PO SCH (09:34)
[2019-09-18] MEDS: diazePAM 5 MG TABLET PO SCH (09:35)
[2019-09-18] MEDS: FLUTICASONE/SALMETEROL 100 MCG/50 MCG DISKUS IH SCH (09:35)
[2019-09-18] MEDS ORDERED: LORATADINE 10 MG TABLET PO SCH (10:00)
[2019-09-18] MEDS ORDERED: LISINOPRIL 10 MG TABLET (FP) PO SCH (10:00)
--- NOTE | 2019-09-18 11:10 | DS ---
Physical Exam: SUBJECTIVE: Patient seen and examined. He has no complaints. He is tolerating soft diet, although he needs to drink to get the food down. OBJECTIVE: Vital Signs Period Temp Pulse Resp BP Sys/Pickett Pulse Ox Last 24 Hr 98 F-100.9 F 75-104 18-22 119-154/63-87 PHYSICAL EXAM GENERAL: The patient is awake, alert, and fully oriented, in no acute distress. NECK: Wearing cervical collar. LUNGS: Breath sounds equal, clear to auscultation bilaterally, no wheezes, no crackles, no accessory muscle use. HEART: Regular rate and rhythm, S1, S2 without murmur, rub or gallop. ABDOMEN: Obese, soft, nontender, nondistended, normoactive bowel sounds, no guarding, no rebound, no hepatosplenomegaly, no masses. EXTREMITIES: 2+ pulses, warm, well-perfused, no edema. LABS Laboratory Results - last 24 hr 09/17/19 09/18/19 09/18/19 08:58 06:30 06:30 WBC 14.6 H 11.0 H RBC 4.49 4.06 Hgb 12.8 11.8 Hct 39.0 34.6 L MCV 86.8 85.4 MCH 28.6 29.0 MCHC 32.9 33.9 RDW 14.1 14.1 Plt Count 264 238 MPV 7.5 7.0 L Absolute Neuts (auto) 13.4 H Total Counted 100 Neutrophils % 91.6 H Neutrophils % (Manual) 90.0 H Band Neutrophils % 0.0 Lymphocytes % 5.9 L Lymphocytes % (Manual) 9.0 Monocytes % 2.4 L Monocytes % (Manual) 1 L Eosinophils % 0.0 Eosinophils % (Manual) 34.7 H Basophils % 0.1 Basophils % (Manual) 0.0 Myelocytes % (Man) 0 Promyelocytes % (Man) 0 Blast Cells % (Manual) 0 Nucleated RBC % 0 Metamyelocytes 0 Sodium 141 Potassium 3.5 Chloride 104 Carbon Dioxide 32 Anion Gap 4 L BUN 20.2 H Creatinine 0.7 Est GFR (CKD-EPI)AfAm 117.22 Est GFR (CKD-EPI)NonAf 101.14 Random Glucose 90 Calcium 8.6 Total Bilirubin 0.3 AST 15 ALT 26 Alkaline Phosphatase 67 Total Protein 6.8 Albumin 3.7 HOSPITAL COURSE: Date of Admission:09/16/19 Date of Discharge: 09/18/19 Minutes to complete discharge: 35 Discharge Summary Problems reviewed: Yes Reason For Visit: RADICULOPATHY, CERVICAL REGION Current Active Problems Cervical disc disease (Acute) HLD (hyperlipidemia) (Acute) HTN (hypertension) (Acute) Hospital Course: This is a 64 year old man with a history of HTN, hyperlipidemia, asthma, BPH who was admitted for C-spine surgery on September 16. He initially presented with neck and left shoulder pain with paresthesias of his left arm. He had symptoms for several years. Left shoulder steroid injection did not help. MRI showed multilevel cervical degenerative disc disease. He was diagnosed with cervical spondylotic radiculopathy and cervical spinal stenosis with myelopathy. On September 16, he underwent C4-C5, C5-C6 discectomies; C5 corpectomy; C4, C6 partial corpectomies; insertion biomechanical device C4-C6; C4-C6 anterior instrumentation; C4-C6 anterior arthrodesis; bone autograft; bone allograft; microsurgical dissection by Dr. Briscoe. He did well and was started on a soft diet. Post-operatively he had a temp to 100.9 which was thought to be secondary to atelectasis. CXR showed bibasilar atelectasis. He used an incentive spirometer. He did well with PT. He is being discharged home on September 18. He is advised to follow up with Dr. Briscoe on September 26. Condition: Stable - Instructions Diet, Activity, Other Instructions: You were admitted to the hospital for spinal surgery. You are being discharged home. Continue taking your home medications as directed. You may take Tylenol (Acetaminophen) as directed on the medication packaging. Do not exceed maximum daily dosage of 4000mg within 24 hours. Prescriptions for tramadol for more severe pain and for Valium have been sent to [facility]. No heavy lifting (>5 lbs), bending or twisting for at least the next six months. Discuss further with Dr. Briscoe at your next appointment. Follow up with your primary care physician within one- two days after discharge. Please call [facility] [place] office for an appointment on 09/26/2019. Return to the nearest Emergency Department if you exerpeince worsening symptoms , fevers, chills, shortness of breath, chest pain, palpitations, abdominal pain , nausea, vomiting. Referrals: Abilio Briscoe MD [Staff Physician] - Disposition: HOME - Home Medications Comprehensive Discharge Medication List: Ambulatory Orders Benazepril HCl 10 mg PO DAILY 09/09/19 Levocetirizine Dihydrochloride [Allergy Relief] 5 mg PO PRN 09/09/19 Montelukast Sodium [Singulair] 10 mg PO HS 09/09/19 Salmeterol/Fluticasone [Advair 100Mcg/50Mcg -] 1 inh PO BID 09/09/19 Simvastatin 20 mg PO HS 09/09/19 Tamsulosin HCl 0.4 mg PO DAILY 09/09/19 Diazepam [Valium] 5 mg PO BID #6 tablet MDD 2 tabs 09/18/19 Tramadol HCl 50 mg PO Q6H PRN #12 tablet MDD 4 tabs 09/18/19 This patient is new to me today: No Emergency Visit: No Critical Care patient: No - Discharge Referral Referred to [facility] No
[2019-09-18 13:28] VITALS: BP 143/86; PULSE 82; TEMP 98.6
--- NOTE | 2019-09-19 15:37 | PATH ---
Surgical Pathology Report Patient Name: GIOVANNA DELGADO Med. Rec. #: [id number] /Age/Gender: 1955 (Age: 64) / M Account: [id number] Location: [facility] MED/SURG Taken: 09/16/2019 Received: 09/17/2019 Reported: 09/19/2019 Physicians: Abilio Briscoe M.D. Specimen(s) Received C4-6 Clinical History Neck pain cervical region Final Diagnosis DISC, C4-6, DISCECTOMY:BENIGN INTERVERTEBRAL DISC TISSUE, BONE, SCANT FIBROADIPOSE TISSUE, AND SKELETAL MUSCLE. Electronically Signed Brianna Maguire M.D. Gross Description Received in formalin labeled "C4-6 disc," is a 2.5 x 2.4 x 0.4 cm aggregate of higgins fragments of fibrocartilaginous tissue. A provider service representative portion is submitted in one cassette. /09/17/201909/17/2019
== END 2019-09-18 13:40 | disposition home or self-care (01) | DRG 472 ==
LOC: JSAMEDAYSX 06:15 → JICU 16:16 → J8W 09-17 20:09
PROVIDERS: ADMIT Orthopaedic Surgery Adult Reconstructive Orthopaedic Surgery; ATTEND Internal Medicine
PROC: 0RG20J0 Fusion of 2 or more Cervical Vertebral Joints with Synthetic Substitute, Anterior Approach, Anterior Column, Open Approach (ICD-10-PCS; 2019-09-16)
PROC: 00NW0ZZ Release Cervical Spinal Cord, Open Approach (ICD-10-PCS; 2019-09-16)
PROC: 4A1004G Monitoring of Central Nervous Electrical Activity, Intraoperative, Open Approach (ICD-10-PCS; 2019-09-16)
PROC: B01BZZZ Fluoroscopy of Spinal Cord (ICD-10-PCS; 2019-09-16)
PROC: 0RB30ZZ Excision of Cervical Vertebral Disc, Open Approach (ICD-10-PCS; principal; 2019-09-16 08:00)
DX: M48.02 Spinal stenosis, cervical region (principal); J98.11 Atelectasis; I10 Essential (primary) hypertension; E78.5 Hyperlipidemia, unspecified; N40.0 Benign prostatic hyperplasia without lower urinary tract symptoms; M40.292 Other kyphosis, cervical region; M54.12 Radiculopathy, cervical region; J45.909 Unspecified asthma, uncomplicated; R50.82 Postprocedural fever
CPT/HCPCS: 36415; 71045-TC-FY; 72050-TC-FY; 76000-TC-FY; 80053; 83735; 84100; 85025; 85027; 86850; 86900; 86901; 94760; 97116-GP; 97161-GP; J0131; J1100; J1644